=== PATIENT | female | born 1995 | race Caucasian/White ===

== ENCOUNTER 2019-03-27 06:05 | Inpatient (IN) | payer OTHER ==
[2019-03-27] MEDS ORDERED: CITRIC ACID/SODIUM CITRATE 30 ML UNIT-DOSE CUP PO ONE ×2 (06:45→08:14)
[2019-03-27] MEDS ORDERED: ELECTROLYTE-148 SOLN 1,000 ML IV SCH (06:45)
[2019-03-27] MEDS ORDERED: ELECTROLYTE-148 SOLN 500 ML IV SCH (06:45)
[2019-03-27 06:57] VITALS: BMI 30.9
[2019-03-27] MEDS ORDERED: morphine SULFATE/PF 0.5 MG/ML (2cc Syringe - QUVA) ONE (08:08)
--- NOTE | 2019-03-27 08:17 | HP ---
Past Medical History - Admission Chief Complaint: iugr 7 % for c s History of Present Illness: iugr, oligo History Source: Patient Limitations to Obtaining History: No Limitations - Past Medical History FIELD CONTACT PERSON: No: Alzheimer's, CVA, Dementia, Migraine, Multiple Sclerosis, Peripheral Neuropathy, Parkinson's, Seizure, Syncope, TIA, Vertigo, Other Cardiovascular: No: AFIB, Aneurysm, Aortic Insufficiency, Aortic Stenosis, CAD, CHF, Deep Vein Thrombosis, HTN, Hyperlipdemia, [place], Mitral Insufficiency, Mitral Stenosis, Murmur, Pulmonary Hypertension, Other Pulmonary: No: Asthma, Bronchitis, Cancer, COPD, O2 Dependent, Pneumonia, Previously Intubated, Pulmonary Embolus, Pulmonary Fibrosis, Sleep Apnea, Other Gastrointestinal: No: Ascites, Cancer, Constipation, Crohn's Disease, Diverticulitis, Diverticulosis, Esophageal Varices, Gastritis, GERD, GI Bleed, Hemorrhoids, Hiatal Hernia, Inflamatory Bowel Disease, Irritable Bowel Disease, Pancreatitis, Peptic Ulcer Disease, Ulcerative Colitis, Other Hepatobiliary: No: Cirrhosis, Cholelithiasis, Cholecystitis, Choledocholithiasis , Hepatitis A, Hepatitis B, Hepatitis C, Other Renal/: No: Renal Failure, Renal Inusuff, BPH, Cancer, Hematuria, Hemodialysis , Neurogenic Bladder, Renal Calculi, UTI, Other Reproductive: No: Ectopic , Endometriosis, Fibroids, PID, Polycystic Ovary Syndrome, Postmenopausal, Other ...: 1 ...Para: 0 ...Term: 0 ... Weeks Gestation by Dates: 38.0 ...EDC by Dates: 04/10/19 Heme/Onc: No: Anemia, B12 Deficiency, Bleeding Disorder, Cancer, Current Chemotherapy, Current Radiation Therapy, Hemochromatosis, Hypercoaguable State, Myeloproliferative Synd, Sickle Cell Disease, Sickle Cell Trait, Thrombocytopenia, Other Infectious Disease: No: AIDS, C-Diff, Herpes Zoster, HIV, MRSA, STD's, Tuberculosis, VREF, Other Psych: No: Addictions, Anxiety, Bipolar, Depression, Panic, Psychosis, Schizophrenia, Other Musculoskeletal: No: Bursitis, Chronic low back pain, Hemiparesis, Hemiplegia, Osteoarthritis, Paraplegia, Other Rheumatology: No: Fibromyalgia, Gout, Lupus, Rheumatoid Arthritis, Sarcoidosis, Vasculitis, Other ENT: No: Allergic Rhinitis, Sinusitis, Other Endocrine: No: [place]'s Disease, [place]'s Disease, Diabetes Insipidus, Diabetes Mellitus, Hyperparathyroidism, Hyperthyroidism, Hypothyroidism, Osteopenia, SIADH, Other Dermatology: No: Basal Cell, Cellulitis, Eczema, Melanoma, Psoriasis, Squamous Cell, Other - Past Surgical History Past Surgical History: Yes: None Hx Myomectomy: No Hx Transabdominal Cerclage: No - Advance Directives Advance Directives: Yes: Living Will - Smoking History Smoking history: Never smoked Have you smoked in the past 12 months: No - Alcohol/Substance Use Hx Alcohol Use: No History of Substance Use: reports: None - Social History Usual Living Arrangement: Yes: With Significant Other ADL: Independent History of Recent Travel: No Home Medications - Allergies Allergies/Adverse Reactions: Allergies Allergy/AdvReac Type Severity Reaction Status Date / Time No Known Allergies Allergy Verified 03/27/19 06:31 - Home Medications Home Medications: Ambulatory Orders Pnv No.95/Ferrous Fum/Folic AC [ Vitamin Tablet] 1 each PO DAILY Family Disease History - Family Disease History Family History: Denies Review of Systems - Review of Systems Constitutional: reports: No Symptoms Eyes: reports: No Symptoms HENT: reports: No Symptoms Neck: reports: No Symptoms Cardiovascular: reports: No Symptoms Respiratory: reports: No Symptoms Gastrointestinal: reports: No Symptoms Genitourinary: reports: No Symptoms Breasts: reports: No Symptoms Reported Musculoskeletal: reports: No Symptoms Integumentary: reports: No Symptoms Neurological: reports: No Symptoms Endocrine: reports: No Symptoms Hematology/Lymphatic: reports: No Symptoms Psychiatric: reports: No Symptoms Physical Exam - Maternity Vital Signs: Vital Signs Temperature 98.3 F 03/27/19 06:10 Pulse Rate 90 03/27/19 06:10 Respiratory Rate 20 03/27/19 06:10 Blood Pressure 139/83 03/27/19 06:10 O2 Sat by Pulse Oximetry (%) Constitutional: Yes: Well Nourished, No Distress, Calm Eyes: Yes: WNL, Conjunctiva Clear, EOM Intact HENT: Yes: WNL, Atraumatic, Normocephalic Neck: Yes: WNL, Supple, Trachea Midline Cardiovascular: Yes: WNL, Regular Rate and Rhythm Lungs: Clear to auscultation Breast(s): Yes: WNL - Abdominal Exam/OB Fundal Height: 34 Number of Fetuses: Single Presentation: Vertex Contractions: Yes Regularity: Irregular Intensity: Unaware Monitor Mode: External Heart Rate Location: [facility] Category: I Accelerations: Uniform Decelerations: None - Vaginal Exam/OB Vaginal Bleediing: No Speculum Exam: No Dilatation (cm): 1 Effacement (%): 10 Amniotic Membrane Status: Intact Station: -3 - Physical Exam Musculoskeletal: Yes: WNL Extremities: Yes: WNL Edema: Yes Edema: LUE: 1+, RUE: 1+, LLE: 1+, RLE: 1+ Integumentary: Yes: WNL Deep Tendon Reflex Grade: Normal +2 ...Motor Strength: WNL Psychiatric: Yes: WNL, Alert, Oriented Hemorrhage Risk Assessment - Risk Factors Risk Score: 0 Risk Level: Low Risk Assessment/Plan iugr 7%, oligo for c s , also per pt requests,
[2019-03-27] MEDS ORDERED: ceFAZolin SODIUM 1 GM VIAL ONE (08:22)
[2019-03-27] MEDS ORDERED: OXYTOCIN 10 UNITS/ML VIAL ONE (08:29)
[2019-03-27] MEDS ORDERED: TUBERCULIN PPD 5 TU/0.1ML SYRINGE (IN PATIENT USE ONLY) ID ONE (09:00)
[2019-03-27] MEDS: ELECTROLYTE-148 SOLN 1,000 ML IV SCH (09:13)
[2019-03-27] MEDS ORDERED: ONDANSETRON 4 MG/2 ML VIAL IVPUSH PRN (09:31)
[2019-03-27] MEDS ORDERED: METHYLERGONOVINE MALEATE 0.2 MG/1 ML AMP IM PRN (09:43)
[2019-03-27] MEDS ORDERED: SENNOSIDES/DOCUSATE COMBO (SENNA PLUS) TABLET (UD) PO PRN (09:43)
--- NOTE | 2019-03-27 09:56 | OP ---
Operative Note - Note: Operative Date: 03/27/19 Pre-Operative Diagnosis: iugr7%, oligo Operation: primary l tc s Findings: iugr, oligo Implants: none Post-Operative Diagnosis: Same as Pre-op Surgeon: Vic Martinez Title Curator: Jatinder Stokes Anesthesiologist/ON AWAKE COUNSELOR: Katina Taylor Anesthesia: Spinal Specimens Removed: placenta Estimated Blood Loss (mls): 700 Operative Report Dictated: Yes
[2019-03-27] MEDS: IBUPROFEN 800 MG/8 ML IJ IVPB PRN ×2 (12:12→20:59)
--- NOTE | 2019-03-27 23:38 | OP ---
DATE OF OPERATION: 03/27/2019 PREOPERATIVE DIAGNOSIS: Intrauterine growth restriction, 7th percentile and oligohydramnios. POSTOPERATIVE DIAGNOSIS: Intrauterine growth restriction, 7th percentile and oligohydramnios. PROCEDURE: Primary low transverse section. SURGEON: Vic Martinez M.D. HEALTH PLAN MANAGER: Lydia Wynn ANESTHESIA: Spinal anesthesia ANESTHESIOLOGIST: Katina Taylor M.D. INDICATION: This is a 24-year-old female patient with 38 weeks and 0 days , IUGR 7th percentile, predict about 5 pounds 12 ounces and has been confirmed and was clear by Dr. Ross as an maternal medicine specialist, and the patient was advised to have delivery at 38 weeks while IUGR was 7th percentile and oligohydramnios, and the patient also requested and requests not to be induced, so patient was taken to OR at 38 weeks for primary low transverse section. PROCEDURE: Patient was placed on operating table in supine position after spinal anesthesia was obtained. The patient's abdomen and pelvis were prepped and draped in the usual sterile manner. Pfannenstiel skin incision was made. Incision was made through skin, subcutaneous tissue, until the fascia was nicked in the midline. The fascia was extended bilaterally. Intraperitoneal cavity was entered, bladder flap was created. Low transverse section of uterus was entered, baby found in LOT position. Baby was handed over the network systems engineer after cord was doubly clamped and cut. Cord blood gas was obtained. Placenta was removed. Uterus was closed in single layer, first layer interlocking Vicryl suture, good hemostasis, and no complications, and both gutters clean. Both ovaries, fallopian tubes, uterus were within normal limits, no complications. Bladder flap was closed. Peritoneum was closed. Fascia was closed. Skin was closed. Transferred to recovery room in stable condition draining clear urine. Blood was about 700 mL. MD RABIA VALENTINE/[id number]
[2019-03-28] MEDS: IBUPROFEN 800 MG/8 ML IJ IVPB PRN (05:49)
[2019-03-28 08:14] LABS: BASO % 0.3 % (0-2.0); EOS % 0.8 % (0-4.5); HEMATOCRIT 27.9 % (32.4-45.2); HEMOGLOBIN 9.3 GM/dL (10.7-15.3); LYMPH % 18.3 % (8-40); MCH 26.6 pg (25.7-33.7); MCHC 33.2 g/dl (32.0-36.0); MEAN CELL VOLUME 80.2 fl (80-96); MEAN PLT VOLUME 8.3 fl (7.5-11.1); MONO % 7.2 % (3.8-10.2); NEUT % 73.4 % (42.8-82.8); PLATELET COUNT 219 K/MM3 (134-434); RBC 3.48 M/mm3 (3.60-5.2); RDW 15.2 % (11.6-15.6)
[2019-03-28] MEDS: ENOXAPARIN NA (PORCINE) 40 MG/0.4 ML DISP.SYRIN SQ SCH (09:24)
[2019-03-28] MEDS: ELECTROLYTE-148 SOLN 1,000 ML IV SCH (09:25)
[2019-03-28] MEDS ORDERED: BISACODYL 10 MG SUPP.RECT RC PRN (09:43)
--- NOTE | 2019-03-28 13:05 | PN ---
Progress Note, Physician Chief Complaint: s/p c section under spinal anesthesia History of Present Illness: post op day one with duramorph for post op pain control - Current Medication List Current Medications: Active Medications Bisacodyl (Dulcolax Suppository -) 10 mg RC PRN PRN PRN Reason: CONSTIPATION Diphenhydramine HCl (Benadryl Injection -) 25 mg IVPUSH Q4H PRN PRN Reason: Pruritis Last Admin: 03/27/19 20:59 Dose: 25 mg Enoxaparin Sodium (Lovenox -) 40 mg SQ DAILY [facility] Last Admin: 03/28/19 09:24 Dose: 40 mg Parenteral Electrolytes (Plasma-Lyte 148 -) 1,000 mls @ 125 mls/hr IV ASDIR [facility] Last Admin: 03/28/19 09:25 Dose: Not Given Ibuprofen (Motrin -) 600 mg PO Q4H PRN PRN Reason: PAIN LEVEL 1 - 3 Ibuprofen (Caldolor Injection -) 800 mg IVPB Q8H PRN PRN Reason: PAIN LEVEL 6-10 Last Admin: 03/28/19 05:49 Dose: 800 mg Methylergonovine Maleate (Methergine Injection -) 0.2 mg IM Q4H PRN PRN Reason: Excessive Bleeding (L&D) Ondansetron HCl (Zofran Injection) 4 mg IVPUSH Q4H PRN PRN Reason: NAUSEA Oxycodone HCl (Roxicodone -) 5 mg PO Q4H PRN PRN Reason: PAIN LEVEL 4 - 6 Oxycodone HCl (Roxicodone -) 10 mg PO Q4H PRN PRN Reason: PAIN LEVEL 7 - 10 Senna/Docusate Sodium (Pericolace -) 2 tablet PO HS PRN PRN Reason: CONSTIPATION Simethicone (Mylicon -) 80 mg PO Q4H PRN PRN Reason: GAS - Objective Vital Signs: Vital Signs Temperature 97.8 F 03/28/19 10:00 Pulse Rate 104 H 03/28/19 10:00 Respiratory Rate 20 03/28/19 10:00 Blood Pressure 134/78 03/28/19 10:00 O2 Sat by Pulse Oximetry (%) 99 03/28/19 05:58 Constitutional: Yes: Well Nourished Cardiovascular: Yes: WNL Respiratory: Yes: WNL Gastrointestinal: Yes: WNL Labs: CBC, BMP 03/28/19 07:05 Assessment/Plan No post anesthetic complications, pain controlled, dept of ansthesiology will sign off care at this time
--- NOTE | 2019-03-28 14:55 | PN ---
Post Progress Note Post Day: 1 Type of Delivery: Primary C/S Vital Signs: Vital Signs Temperature 97.8 F 03/28/19 10:00 Pulse Rate 104 H 03/28/19 10:00 Respiratory Rate 20 03/28/19 10:00 Blood Pressure 134/78 03/28/19 10:00 O2 Sat by Pulse Oximetry (%) 99 03/28/19 05:58 Breast Exam: Yes: Soft Uterus: Yes: Fundus Firm, Fundus below umbilicus Incision: Yes: Dressing dry and intact, Sutures intact Abdomen/GI: Yes: Abdomen soft, Passing flatus, Tolerating PO Lochia: Yes: Serosa Lochia, amount: Small Extremities: Yes: Calves non-tender Perineum: Yes: Intact Activity: Ambulating - Labs Labs: CBC WBC 9.0 K/mm3 (4.0-10.0) 03/28/19 07:05 RBC 3.48 M/mm3 (3.60-5.2) L 03/28/19 07:05 Hgb 9.3 GM/dL (10.7-15.3) L 03/28/19 07:05 Hct 27.9 % (32.4-45.2) L D 03/28/19 07:05 MCV 80.2 fl (80-96) 03/28/19 07:05 MCH 26.6 pg (25.7-33.7) 03/28/19 07:05 MCHC 33.2 g/dl (32.0-36.0) 03/28/19 07:05 RDW 15.2 % (11.6-15.6) 03/28/19 07:05 Plt Count 219 K/MM3 (134-434) D 03/28/19 07:05 MPV 8.3 fl (7.5-11.1) 03/28/19 07:05 Absolute Neuts (auto) 6.6 K/mm3 (1.5-8.0) 03/28/19 07:05 Neutrophils % 73.4 % (42.8-82.8) 03/28/19 07:05 Lymphocytes % 18.3 % (8-40) 03/28/19 07:05 Monocytes % 7.2 % (3.8-10.2) 03/28/19 07:05 Eosinophils % 0.8 % (0-4.5) 03/28/19 07:05 Basophils % 0.3 % (0-2.0) 03/28/19 07:05 Nucleated RBC % 0 % (0-0) 03/28/19 07:05 Assessment/Plan doing well,
[2019-03-28] MEDS: oxyCODONE HCL 5 MG TABLET PO PRN (19:10)
[2019-03-28] MEDS: SIMETHICONE 80 MG TAB.CHEW (FP) PO PRN (19:10)
[2019-03-28] MEDS: IBUPROFEN 600 MG TABLET (FP) PO PRN (19:11)
[2019-03-29] MEDS: SIMETHICONE 80 MG TAB.CHEW (FP) PO PRN ×4 (02:33→22:01)
[2019-03-29] MEDS: IBUPROFEN 600 MG TABLET (FP) PO PRN ×4 (02:33→22:02)
[2019-03-29] MEDS: oxyCODONE HCL 5 MG TABLET PO PRN ×4 (02:34→22:02)
--- NOTE | 2019-03-29 06:56 | PN ---
Progress Note (short form) - Note Progress Note: pod 3, s/p c/s, doing well, ambulating , no excess vaginal bleeding . no dizziness Last Vital Signs Temp Pulse Resp BP Pulse Ox 98.8 F 95 H 18 137/63 99 03/28/19 22:00 03/28/19 22:00 03/28/19 22:00 03/28/19 22:00 03/28/19 05:58 abdomen soft, no distension, no cva incision dry, clean , clean , no discharge no excess vaginal bleeding , no calf tenderness impression mild anemia , asymptomatic plan repeat cbc iron vit ambulate CBC, BMP 03/28/19 07:05
[2019-03-29] MEDS: ENOXAPARIN NA (PORCINE) 40 MG/0.4 ML DISP.SYRIN SQ SCH (10:02)
--- NOTE | 2019-03-29 18:23 | PATH ---
Surgical Pathology Report Patient Name: RICCARDO JACOB [facility]. Rec. #: [id number] /Age/Gender: 1995 (Age: 24) / F Account: [id number] Location: [facility] OBS/STRANDING SUPERVISOR Taken: 03/27/2019 Received: 03/27/2019 Reported: 03/29/2019 Physicians: Vic Martinez MD Specimen(s) Received PLACENTA Clinical History , 38 weeks, oligo, IUGR Final Diagnosis PLACENTA: THIRD TRIMESTER PLACENTA. TRIVASCULAR CORD. MEMBRANES WITH NO DIAGNOSTIC ABNORMALITIES. Electronically Signed Gary Berry M.D. Gross Description The specimen is received fresh labeled placenta and is a 308 gram, 16.0 x 11.0 x 2.5 cm. placenta with attached membranes and umbilical cord. The attached membranes are sanchez, translucent with focal opacities and display focal circumarginate insertion. The umbilical cord measures 25 cm. in length and averages 1.1 cm. in diameter. The cord inserts eccentrically, 4.5 cm. to the nearest margin. No true knots or strictures are identified. Cut surface of the umbilical cord reveals 3 vessels. The surface is kevin-blue with minimal fibrin deposition and appropriate caliber vessels. The maternal surface is red-brown with focal defects. Sectioning reveals red-brown, spongy parenchyma. No lesions are identified. Web Coordinator sections are submitted in three cassettes as follows: 1- membrane rolls and umbilical cord; 2-3- full thickness sections of placenta. /03/28/2019 saudi/03/28/2019
[2019-03-30] MEDS: oxyCODONE HCL 5 MG TABLET PO PRN ×2 (07:35→20:47)
[2019-03-30] MEDS: IBUPROFEN 600 MG TABLET (FP) PO PRN ×3 (07:36→20:48)
[2019-03-30] MEDS: SIMETHICONE 80 MG TAB.CHEW (FP) PO PRN ×3 (07:37→20:47)
[2019-03-30 07:56] LABS: BASO % 0.4 % (0-2.0); EOS % 2.2 % (0-4.5); HEMOGLOBIN 9.3 GM/dL (10.7-15.3); LYMPH % 33.3 % (8-40); MCH 26.6 pg (25.7-33.7); MCHC 33.3 g/dl (32.0-36.0); MEAN CELL VOLUME 79.8 fl (80-96); MONO % 7.1 % (3.8-10.2); RBC 3.52 M/mm3 (3.60-5.2); RDW 15.6 % (11.6-15.6); WHITE BLOOD COUNT 7.9 K/mm3 (4.0-10.0)
[2019-03-30 09:04] LABS: PLATELET COUNT 294 K/MM3 (134-434)
[2019-03-30] MEDS: ENOXAPARIN NA (PORCINE) 40 MG/0.4 ML DISP.SYRIN SQ SCH (10:27)
[2019-03-30] MEDS ORDERED: oxyCODONE HCL 5 MG TABLET PO PRN (15:39)
--- NOTE | 2019-03-30 17:48 | PN ---
Post Progress Note Post Day: 3 Type of Delivery: Primary C/S Vital Signs: Vital Signs Temperature 98.4 F 03/30/19 10:00 Pulse Rate 112 H 03/30/19 10:00 Respiratory Rate 20 03/30/19 10:00 Blood Pressure 146/76 03/29/19 20:57 O2 Sat by Pulse Oximetry (%) 99 03/28/19 05:58 Breast Exam: Yes: Soft Uterus: Yes: Fundus Firm, Fundus below umbilicus, Non-tender Incision: Yes: Dressing dry and intact, Sutures intact Abdomen/GI: Yes: Abdomen soft, Passing flatus, Tolerating PO Lochia: Yes: Alba Lochia, amount: Small Extremities: Yes: Calves non-tender Activity: Ambulating - Labs Labs: CBC WBC 7.9 K/mm3 (4.0-10.0) 03/30/19 07:10 RBC 3.52 M/mm3 (3.60-5.2) L 03/30/19 07:10 Hgb 9.3 GM/dL (10.7-15.3) L 03/30/19 07:10 Hct 28.0 % (32.4-45.2) L 03/30/19 07:10 MCV 79.8 fl (80-96) L 03/30/19 07:10 MCH 26.6 pg (25.7-33.7) 03/30/19 07:10 MCHC 33.3 g/dl (32.0-36.0) 03/30/19 07:10 RDW 15.6 % (11.6-15.6) 03/30/19 07:10 Plt Count 294 K/MM3 (134-434) D 03/30/19 07:10 MPV 8.0 fl (7.5-11.1) 03/30/19 07:10 Absolute Neuts (auto) 4.5 K/mm3 (1.5-8.0) 03/30/19 07:10 Neutrophils % 57.0 % (42.8-82.8) D 03/30/19 07:10 Lymphocytes % 33.3 % (8-40) D 03/30/19 07:10 Monocytes % 7.1 % (3.8-10.2) 03/30/19 07:10 Eosinophils % 2.2 % (0-4.5) D 03/30/19 07:10 Basophils % 0.4 % (0-2.0) 03/30/19 07:10 Nucleated RBC % 0 % (0-0) 03/30/19 07:10 Assessment/Plan dc pt home tomorrow , doing well, ambulating well, tolerating diet well
--- NOTE | 2019-03-30 17:51 | DS ---
Physical Exam-CARD PUNCHER Vital Signs: Vital Signs Temperature 98.4 F 03/30/19 10:00 Pulse Rate 112 H 03/30/19 10:00 Respiratory Rate 20 03/30/19 10:00 Blood Pressure 146/76 03/29/19 20:57 O2 Sat by Pulse Oximetry (%) 99 03/28/19 05:58 Constitutional: Yes: Well Nourished, No Distress, Calm Eyes: Yes: WNL, Conjunctiva Clear, EOM Intact HENT: Yes: WNL, Atraumatic, Normocephalic Neck: Yes: WNL, Supple, Trachea Midline Cardiovascular: Yes: WNL, Regular Rate and Rhythm Respiratory: Yes: WNL, Regular, CTA Bilaterally Gastrointestinal: Yes: WNL, Normal Bowel Sounds, Soft ...Rectal Exam: Yes: WNL Renal/: Yes: WNL Pelvis: Yes: WNL External Genitalia: Yes: Normal Internal Exam Deferred: Yes Vaginal Exam: Yes: Normal Cervix: Yes: Normal Uterus: Yes: Normal ....Post : Yes: Uterus firm, Uterus non-tender Breast(s): Yes: WNL Musculoskeletal: Yes: WNL Extremities: Yes: WNL Edema: Yes Edema: LUE: 1+, RUE: 1+, LLE: 1+, RLE: 1+ Integumentary: Yes: WNL Wound/Incision: Yes: Clean/Dry, Well Approximated Neurological: Yes: WNL, Alert, Oriented ...Motor Strength: WNL Psychiatric: Yes: WNL, Alert, Oriented Labs: CBC, BMP 03/30/19 07:10 Delivery - Delivery Section: Primary (doing well, no complications, dc pt home tomorrow, will see the office in 2 weeks) Type of Anesthesia: Spinal Episiotomy/Laceration: None EBL (cc): 700 Delivery, Single - Stages of Labor Date of Delivery: 03/27/19 Time of Delivery: 08:35 Time Placenta Delivered: 08:36 - Condition of Senior Officer/Nuclear Reactor Technician Present: Yes Name: Shira Grant Gender: Female Weight: 2.495 kg Position: Right, OT Total Hours ROM (Hrs/Mins): 0hrs 2min - 1 Minute Total Score: 9 5 Minutes Total Score: 9 - [place] Feeding Plan Initial Plan: Exclusive throughout hospitalization Discharge Summary Reason For Visit: ALBINA. ADMIT - Instructions - Home Medications Comprehensive Discharge Medication List: Ambulatory Orders Pnv No.95/Ferrous Fum/Folic AC [ Vitamin Tablet] 1 each PO DAILY
[2019-03-31] MEDS: oxyCODONE HCL 5 MG TABLET PO PRN ×3 (05:17→12:17)
[2019-03-31] MEDS: SIMETHICONE 80 MG TAB.CHEW (FP) PO PRN ×3 (05:17→12:17)
[2019-03-31] MEDS: IBUPROFEN 600 MG TABLET (FP) PO PRN ×3 (05:17→12:19)
[2019-03-31] MEDS: ENOXAPARIN NA (PORCINE) 40 MG/0.4 ML DISP.SYRIN SQ SCH (10:04)
[2019-03-31 14:21] VITALS: BP 119/72; PULSE 107; TEMP 98
== END 2019-03-31 13:40 | disposition home or self-care (01) | DRG 540 ==
LOC: JLDR 06:05 → J3W 10:59
PROVIDERS: ADMIT Obstetrics & Gynecology; ATTEND Obstetrics & Gynecology
PROC: 10D00Z1 Extraction of Products of Conception, Low, Open Approach (ICD-10-PCS; principal; 2019-03-27)
DX: O41.03X0 Oligohydramnios, third trimester, not applicable or unspecified (principal); O36.5930 Maternal care for other known or suspected poor fetal growth, third trimester, not applicable or unspecified; Z3A.38 38 weeks gestation of pregnancy; Z37.0 Single live birth
CPT/HCPCS: 36415; 85025; 88307-TC